=== PATIENT | female | born 1985 | race American Indian/Alaskan Native ===

== ENCOUNTER 2020-06-06 13:14 | Emergency (ER) | payer MEDICAID ==
[2020-06-06 13:24] VITALS: BP 149/107
[2020-06-06] MEDS ORDERED: TETRACAINE 0.5% OPHTH SOLN 4ML OU STA (14:06)
[2020-06-06] MEDS ORDERED: FLUORESCEIN 1 MG STRIP OP ONE (14:07)
--- NOTE | 2020-06-06 14:13 | Event Note ---
ED Screening Note Date of service: 06/06/20 Time: 14:10 ED Screening Note: pt presents to ED with c/o bilateral eye irritation, itching and soreness. Onset last night She reports increased tearing and FB sensation in right eye but no matting or crusting. She reports blurrying vision. She wears contacts. She removed contacts when she noticed the irritation. She states she usually takes them out every night. but she admits she sometimes falls asleep in her contacts. She denies any welding, grinding or injury to eye. This initial assessment/diagnostic orders/clinical plan/treatment(s) is/are subject to change based on patients health status, clinical progression and re- assessment by fellow clinical providers in the ED. Further treatment and workup at subsequent clinical providers discretion. Patient/guardian urged not to elope from the ED as their condition may be serious if not clinically assessed and managed. Initial orders include: Eye exam
--- NOTE | 2020-06-06 14:45 | Emergency Department Report ---
ED Eye Problem HPI - General Chief complaint: Eye Problems Stated complaint: CANT SEE Time Seen by Provider: 06/06/20 14:37 Source: patient Mode of arrival: Ambulatory Limitations: No Limitations - History of Present Illness Initial comments: Patient reports gradual onset of right eye pain yesterday. She reports she does wear contacts and occasionally sleeps in them but yesterday they were not and when she started to have the pain. She states that she feels like it has now spread to the left eye and she reports blurred vision. She reports pain is worsened by the light, nothing makes better. Pain is moderate, 5-6 out of 10. Denies nausea vomiting headache, injury to the eye, or any other complaints. - Related Data Previous Rx's Medication Instructions Recorded Last Taken Type Ofloxacin 0.3% [Ocuflox 0.3% opth] 1 drops OD Q4H #1 bottle 06/06/20 Unknown Rx traMADoL [Ultram 50 MG tab] 50 mg PO Q4HR PRN #10 tablet 06/06/20 Unknown Rx Allergies Allergy/AdvReac Type Severity Reaction Status Date / Time No Known Allergies Allergy Unverified 06/06/20 13:21 ED Review of Systems ROS: Stated complaint: CANT SEE Other details as noted in HPI Comment: All other systems reviewed and negative ED Past Medical Hx - Past Medical History Previous Medical History?: No - Surgical History Past Surgical History?: No - Social History Smoking Status: Never Smoker Substance Use Type: None - Medications Home Medications: Home Medications Medication Instructions Recorded Confirmed Last Taken Type Ofloxacin 0.3% [Ocuflox 0.3% opth] 1 drops OD Q4H #1 bottle 06/06/20 Unknown Rx traMADoL [Ultram 50 MG tab] 50 mg PO Q4HR PRN #10 tablet 06/06/20 Unknown Rx ED Physical Exam - General Limitations: No Limitations General appearance: alert, in no apparent distress - Head Head exam: Present: atraumatic, normocephalic - Eye Eye exam: Present: PERRL, EOMI, conjunctival injection, other (Mild conjunctival injection bilateral right greater than left, clear drainage, small area of fluorescein uptake on the right at about the 9 o'clock position, intraocular pressure 13, 15.). Absent: periorbital swelling, periorbital tenderness - ENT ENT exam: Present: mucous membranes moist - Neck Neck exam: Present: normal inspection - Respiratory Respiratory exam: Present: normal lung sounds bilaterally. Absent: respiratory distress - Cardiovascular Cardiovascular Exam: Present: regular rate, normal rhythm. Absent: systolic murmur, diastolic murmur, rubs, gallop - GI/Abdominal GI/Abdominal exam: Present: soft, normal bowel sounds - Extremities Exam Extremities exam: Present: normal inspection - Back Exam Back exam: Present: normal inspection - Neurological Exam Neurological exam: Present: alert, oriented X3 - Psychiatric Psychiatric exam: Present: normal affect, normal mood - Skin Skin exam: Present: warm, dry, intact, normal color. Absent: rash ED Course Vital Signs 06/06/20 13:21 Temperature 98.6 F Pulse Rate 77 Respiratory 18 Rate Blood Pressure 149/107 O2 Sat by Pulse 96 Oximetry ED Medical Decision Making - Medical Decision Making Patient presenting with right eye pain as well as some discomfort to the left eye, states she wears contacts but took them out right before this started yesterday. No injuries. On my exam bilateral conjunctival injection is noted, intraocular pressure is normal, small area of fluorescein uptake on the right at about the 9 o'clock position. After placing tetracaine, patient's pain completely resolved and she states that her vision had returned to normal. This is consistent with corneal abrasion. 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 We will place on erythromycin ointment, advised to abstain from contact use and follow-up as scheduled. - Differential Diagnosis Abrasion, ulceration, conjunctivitis, acute angle-closure glaucoma less lik Critical care attestation.: If time is entered above; I have spent that time in minutes in the direct care of this critically ill patient, excluding procedure time. ED Disposition Clinical Impression: Corneal abrasion Qualifiers: Encounter type: initial encounter Laterality: right Qualified Code(s): S05.01XA - Injury of conjunctiva and corneal abrasion without foreign body, right eye, initial encounter Disposition: TO HOME OR SELFCARE Is pt being admited?: No Condition: Good Instructions: Corneal Abrasion Prescriptions: Ofloxacin 0.3% [Ocuflox 0.3% opth] 1 drops OD Q4H #1 bottle traMADoL [Ultram 50 MG tab] 50 mg PO Q4HR PRN #10 tablet PRN Reason: Pain Referrals: OSCAR SOLIS MD [Staff Physician] - 3-5 Days Time of Disposition: 14:45
== END 2020-06-06 15:09 | disposition home or self-care (01) ==
LOC: ED 13:14
DX: S05.01XA Injury of conjunctiva and corneal abrasion without foreign body, right eye, initial encounter (principal); Z79.899 Other long term (current) drug therapy; X58.XXXA Exposure to other specified factors, initial encounter; Y93.89 Activity, other specified; Y92.89 Other specified places as the place of occurrence of the external cause; Y99.8 Other external cause status
CPT/HCPCS: 99282